=== PATIENT | male | born 1960 | race Caucasian/White ===

== ENCOUNTER → 2023-02-20 | Outpatient (CLI) | payer MEDICAID, SELFPAY ==
--- NOTE | 2023-02-20 07:50 | CT_ITS ---
CT RIGHT LOWER EXTREMITY WITH 3-D IMAGING PROCEDURE: CT RIGHT KNEE WITHOUT CONTRAST REASON FOR EXAM: Male, 62 years old. Preoperative planning for the MakoPlasty Robotic knee surgery. Knee pain. TECHNIQUE: Transaxial CT of the hip, knee and ankle were obtained. Coronal and sagittal reconstruction images of the knee were provided. Individualized dose optimization techniques were used for this CT. RADIATION DOSAGE (If Supplied By Facility): CTDIvol = ( 18.84 ) mGy, DLP = ( 1293.34 ) mGycm COMPARISON: None. FINDINGS: Standard protocol for the preoperative planning for the MakoPlasty robotic knee surgery was performed. There is mild osteoarthrosis of the hip and knee. CT/Extremity Lower without Contra IMPRESSION: Preoperative MakoPlasty Robotic knee surgical CT evaluation with findings as described above. Electronically Signed: Ray Carver, at 12:39 EDT ,
== END | disposition home or self-care (01) ==
PROVIDERS: Referring Provider Specialist; Visit Provider Specialist
DX: M21.061 Valgus deformity, not elsewhere classified, right knee (principal)
CPT/HCPCS: 73700

== ENCOUNTER 2023-03-08 07:01 | Observation (INO) | payer MEDICAID, SELFPAY ==
--- NOTE | 2023-02-20 12:05 | HP.PCM_ITS ---
History and Physical History and Physical? Patient Name: Alexander Alexander : 1960 From:? AJ CORONA PA-C? DATE OF SURGERY:? 03/08/2023 SCHEDULED PROCEDURE:? Right total knee arthroplasty HISTORY OF PRESENT ILLNESS: Preoperative history and physical exam was performed on February 20, 2023.? This is a 62-year-old male who is been having ongoing pain for over 8 years.? He has noticed progression of the pain over the past several months.? His pain can reach his high as an 8/10 with activities.? Recent pain as being constant, aching, sharp, stabbing, sore.? Pain is increased with going up and down stairs, driving, sitting and walking.? He feels unsafe with walking and doing all activities.? He has fallen and tripped/stumbled due to the pain.? He has difficulty with activities of daily living including bathing/showering, getting dressed, housework, shopping, leisure activities such as golf and writing motorcycle.? Patient denies past history of surgery on his right knee.? He has attempted rest, ice, heat, elevation with no relief.? Patient has tried compression brace without relief.? He uses an occasional cane.? Patient has tried previous corticosteroid injection and gel injection with no relief.? He has tried oral medications including ibuprofen without relief.? After failing conservative measures and discussing all treatment options was Dr. Abdulaziz Sweet, the patient does wish to proceed with a right total knee arthroplasty.? Patient has been doing aquatic therapy and has maintained weight loss through diet.? We are obtaining surgical clearance from the primary care provider Dr. Ольга Roa.? Patient does report having lab work and EKG with her primary care physician.? Patient denies past history of DVT or pulmonary embolism.? Denies any recent chest pain, shortness of breath, fevers chills or recent infections. REVIEW OF SYSTEMS: Review Of Systems: Constitutional: Denies change in appetite, fever and weight change. Cardiovasular: Denies chest pain, heart murmur and irregular heartbeat. Respiratory: Denies cough, pneumonia, shortness of breath, tuberculosis and wheezing. Gastrointestinal: Denies constipation, diarrhea, heartburn, nausea, rectal itching, bloody stools and vomiting. Genitourinary: Denies incontinence. Musculoskeletal: Reports gait disturbance, leg swelling, pain and trouble walking, but denies weakness. Skin: Reports tattoo, but denies Raynaud's and history of shingles. Neurological: Denies ambulatory dysfunction, dizziness, numbness/tingling and tremor. Psychiatric: Denies anxiety, insomnia and stress. Hematologic/Lymphatic: Denies anemia, bleeding/bruising tendency and past transfusion. Reviewed, no changes. PAST MEDICAL HISTORY: Advance Care Plan: No Advance Directives Effective Date: 02/21/2022 Past Medical History: Medical Problems: Diabetes, High Blood Pressure, Hypercholesterolemia Covid- 19 - (09/2020) Accidents: None Surgical Hx: Rotator Cuff Repair Lt - (08/30/2012) [facility] Rotator Cuff Repair Rt - (01/16/2014) [facility] Achilles Tendon Repair - (02/22/2017) [facility] Anesthesia Complications: None Assistive Devices: Glasses, Dentures Reviewed, no changes. SOCIAL HISTORY: Social History: Marital: .Occupation: Retired.Work Status: Retired.Hand Dominance: Right- handed. Personal Habits:? Cigarette Use: Former.Smokeless Tobacco: Never Used Smokeless Tobacco.E-Cigarette Use: Never used.Alcohol: Occasionally.Drug Use: Denies Use.Enjoy Exercising: Never Exercises. Reviewed and updated. VITALS: Ht: 72.5 Wt: 353lb Wt k.121 BMI: 47.2 BP: 126/82 Pulse: 99 Resp: 20 T: 97.8 T: 36.6C Pain Level: 7 O2SatR: 97 ALLERGIES: No Known Drug Allergy? MEDICATIONS: Metformin HCL 500 mg 1 by mouth every day, Lisinopril 30 mg 1 by mouth every day, Trulicity 1.5 mg/0.5ml injects once weekly, Jardiance 25 mg take 1 tablet by mouth once daily with breakfast, Pioglitazone HCL 45 mg take 1 tablet by mouth once daily, Valsartan 320 mg 1 PO qdaily, Vitamin D3 50 mcg (1999 Ut) 1 by mouth every other day, Multi Vitamin? 1 po daily PRE-OP EXAM:? General appearance:NORMAL? ? ? Other: Eyes: Conjunctivae and lids: NORMAL? Pupils: ERR Ears, Nose, Mouth, and Throat: NORMAL? Other: Inspection of lips, teeth and gums: NORMAL? ?Other: Neck: Examination of neck: no masses noted. Respiratory: Assessment of respiratory effort: NORMAL? ?Other: ?Auscultation of lungs: clear to auscultation no wheezes, rhonchi or rales. Cardiovascular:? Auscultation of heart: regular rate and rhythm, no murmurs, gallops or rubs. PHYSICAL EXAMINATION: Patient does walk with an antalgic gait with hyperextension on the right knee.? Right knee has large effusion.? He has tenderness to palpation along the lateral joint line.? Range of motion: 2 hyperextension to flexion 100.? He has 10 valgus alignment which is partially correctable.? Sensation intact to light touch. IMAGING STUDIES: Previous x-rays of the right knee reveal valgus alignment with lateral joint space narrowing, subchondral sclerosis, osteophyte formation consistent with severe stage IV osteoarthritis with bony erosions in the lateral compartment. IMPRESSION: 1.? Severe right knee osteoarthritis with valgus alignment 2.? Hypertension 3.? Type 2 diabetes 4.? Hypercholesterolemia PLAN: Dr. Abdulaziz Sweet did discuss and review with the patient all treatment options including surgical versus nonsurgical options.? Patient does wish to proceed with the above-stated procedure.? Potential risks, benefits, and complications of the procedure were discussed in detail including but not limited to , infection, nerve and blood vessel damage, persistent pain, numbness, tingling, paresthesias, blood clot, pulmonary embolism, and requirement for possible further surgery.? The patient expressed full understanding and has no further questions for the doctor.? Patient does agree to proceed with the above-stated procedure and has signed the surgery consent form. Plan for patient for post-operative medications are the following:? I did discuss with the patient that postoperatively due to elevated BMI greater than 40.0 he will be on doxycycline for 2 weeks postoperatively. DVT Prophylaxis: Patient denies past history of DVT or pulmonary embolism.? We will proceed with aspirin 81 mg twice daily for 4 weeks postoperatively for DVT prophylaxis. This dictation was created using voice recognition software. Phonetic and/or grammatical errors may exist. ___? I have re-examined the patient.? There are no clinical changes since date of exam. ___? See progress notes for changes. ___? Dictated on admission Date: ? ? ?Time: Signature:
[2023-02-23 11:02] LABS: Magnesium 2.1 mg/dL (1.6-2.6)
[2023-03-08] VITALS (14 sets, daily range): BP systolic 97–166; BP diastolic 66–97; PULSE 93–119; RESP 18–24; TEMP 36.1–36.8; O2SAT 93–99; BMI 47.5
[2023-03-08] MEDS: Magnesium 1 GM over 15 mins IV (06:32)
[2023-03-08] MEDS: Lactated Ringers 1,000 ML 999 ML IV ×2 (06:32→11:15)
[2023-03-08] MEDS: Acetaminophen 500 MG Tablet 1000 MG PO ×3 (06:54→21:24)
[2023-03-08] MEDS: Celecoxib 200 MG Capsule 400 MG PO (06:55)
[2023-03-08] MEDS: Gabapentin 600 MG Tablet PO (06:55)
--- NOTE | 2023-03-08 06:59 | PCM.OPRPT ---
Report of Operation Date of Procedure: 03/08/23 Pre-Operative Diagnosis: Right knee primary osteoarthritis Post-Operative Diagnosis: Right knee primary osteoarthritis Surgery/Procedure Performed:: Right minimally invasive robotic total knee replacement Description of Surgical Findings:: Stable knee with good patella tracking explore osteoarthritis. Patient had valgus alignment preoperatively which was corrected to neutral intraoperatively. Based on his chronic valgus alignment we did elect to use a total stabilized polyethylene in order to help offload the medial collateral ligament. Surgeon: Abdulaziz Sweet coat baster: Jay Campos Type of Anesthesia: Spinal Anesthesiologist: Marc Bernal Special Medications: 2 g Ancef, 1 g TXA at incision, 1 g TXA closure, 10 mg Decadron, joint cocktail (5 mg Duramorph, 30 mL of 0.5% Ropivicaine, 1000 units of epinephrine, 30 mg of Toradol) Specimen's removed: Bony cuts Estimated Blood Loss (mL): 150 Fluids Replaced: 1800 Description of Procedure: Implants used: 1. [place] size 7 triathlon posterior stabilized distal femoral cemented component 2. [place] size 7 cemented universal tibial baseplate 3. Poli X3 13 mm TS polyethylene 4. [place] X3 38 mm asymmetric patella Brief history operative indications: 62-year-old M with history of right knee osteoarthritis with radiographic findings with loss of joint space, osteophyte formation and subchondral sclerosis. Failed conservative measures as mentioned in the H&P. Discussion of total knee arthroplasty as well as risk and benefits were discussed the patient including but not limited to blood loss, DVTs, PEs, neurovascular damage, general risk of anesthesia including loss of life, and stiffness or instability were discussed with patient. Patient demonstrated understanding and was able to sign informed consent. Procedure: On the date of procedure patient's right lower extremity was marked in the preoperative area. The patient was then taken back to the operating room where the patient was placed on the table in the supine position. All bony prominences were identified a well-padded. Anesthesia assumed control of the C-spine and airway and remained controlled throughout the remainder of the procedure. A tourniquet was placed on the right upper thigh and the leg was prepped in a sterile fashion. The surgeon then scrubbed at this time .Upon reentering the room right lower extremity was draped in a standard orthopedic fashion. A timeout was then called and everyone agreed upon the side, the site, the procedure to be performed, patient's identity and antibiotics given. Esmarch bandage was used to exsanguinate the extremity and the tourniquet was placed up to 250 mmHg with the knee in flexion. A midline skin incision was made and sharp dissection was taken down through skin subcutaneous tissue and fat. The standard medial parapatellar incision was made and the patella was subluxed laterally. An Appropriate deep MCL release was done and the fat pad was resected. Our attention was then directed to the patella. The patella was everted and a flat resection was made. The knee was then flexed up in 2 femoral pins were placed inside the incision and 2 tibial pins were placed outside the incision in the medial tibia bicortically. Once this was completed the 2 checkpoints in the femur and tibia were placed. Knee was then flexed up and the bony landmarks were registered. Once this was completed knee was taken through range of motion and manually stressed allowing us to a plan for an appropriate tibial cut. The robotic arm was brought into the field sterilely and checkpoint and saw were registered. Based on the patient's deformity the tibial cut was made neutral to the tibial axis. At this time the tensioner was then placed in the joint and ligament tension was checked at 90 degrees and full extension. Based on the patient's ligamentous tension appropriate adjustments were made to the operative plan and ligament releases were done. Once we were happy with our operative plan with balanced flexion and extension gaps our attention was directed to the femur. The robot was brought into the field sterilely and registered. Posterior condylar cuts, anterior chamfer cuts and anterior cuts were appropriately made for a size 7 femur. When these were completed the saws were switched out in the distal femoral and posterior chamfer cuts were made. Protecting the soft tissue throughout this time. A size 7 tibial base plate was selected. the knee was flexed to 90 degrees and the soft tissues and posterior osteophytes were removed from the joint. 40 cc of the periarticular injection was injected into the posterior medial corner of the joint. The appropriate trials were then placed on the femur and tibia. A trial polyethylene was trialed to ensure proper balancing and stability of the knee. The appropriate tibial internal rotation was then marked with a bovie. Our attention was then directed to the patella. The lug holes were drilled and the patella trial was placed. Patellar tracking was checked and deemed appropriate. Once we were happy lug holes were drilled for the femur and trial components were removed. the tibia was subluxed and pinned into place and the keel was punched and drilled appropriately. Femoral notch cut was made. Final components were verified and opened, and cement was mixed in a vacuum. The Local Simplex cement was used. The wound was copiously irrigated with normal saline. When the cement was ready the components were cemented into place starting with the tibia, femur and finally cementing the patella. The trial poly component was placed and the knee was placed in full extension. All excess cement was removed in the process. Once the cement had cured the tracking, alignment and balance were verified and a size 13 mm TS polyethylene component was placed. Once the final components were placed a 3-minute dilute Betadine lavage was performed followed by an Irrisept lavage was performed and the wound was copiously irrigated with normal saline solution and the periarticular injection was given. The wound was closed in a layer woodson fashion using #1 vicryl interrupted sutures for the arthrotomy, 2-0 interrupted Vicryl suture for the subcuticular layer and juan for final skin closure. A sterile compressive dressing was then placed. The patient was then awakened from anesthesia, transferred to the [facility] and transferred to the PACU for recovery. Post op plan DVT ppx: ASA 81mg BID, thigh high compression stockings Follow up: in office in 2 weeks for wound check PT: to start POD #0 at hospital, outpatient PT should be arranged. Patient will be placed on doxycycline 100 mg p.o. twice daily postoperatively for elevated risk due to increased BMI. My physician melter assistant was a vital part of this case. He was important in appropriate retraction during the case, and protection of soft tissues during bony cuts. His intimate knowledge of the case and my steps aided in safe and expedient completion of the procedure as well as appropriate position of the leg during the case. He was also vital in assisting with closure under my direct supervision. Due to the complexity of this case robotic arm was used to assist in the surgery to improve accuracy and clinical outcomes. Complications No intraoperative complications Admit VTE Documentation VTE Present on Admission: No VTE Mechan Device Prophylaxis: SCD's and Thigh High DILEEP Hose VTE Pharm Prophylaxis ordered?: Yes
[2023-03-08 07:00] LABS: Bedside Glucose 147 mg/dL (74-106)
--- NOTE | 2023-03-08 08:30 | KNEE_PTH ---
PATIENT: KATHIE HAWLEY LOC: [facility]3 U#:[id number] AGE/SX: 62/M ROOM: IL311 RE03/08/[address]: Dr. Abdulaziz Sweet MD : 1960 BED: 1 DIS: 03/09/2023 SPEC #: [id number] RECD: 03/08/23 11:19 STATUS: RENETTA ROCHA #: [id number] KURTIS: 03/08/23 08:[address]: Abdulaziz Sweet DEPT: SURGICAL PATHOLOGY RECD BY: Kenia Rubi Tissues: Knee, NOS Procedures: Decalcification bone/plaque Surgery Specimen Level IV HEADER OPERATION: ERAS, total knee replacement robotic arm assist PRE-OP DIAGNOSIS: Severe right knee osteoarthritis with valgus alignment TISSUE SUBMITTED: A ? Bone and soft tissue of right knee, B ? Synovium of right knee MICROSCOPIC DIAGNOSIS A. Bone and tissue of right knee, total knee resection: Severe degenerative joint disease. Polarizable crystals consistent with pseudogout. B. Synovium of right knee, excision: Benign synovial hyperplasia. AM:krysten 03/13/2023 MICROSCOPIC DESCRIPTION Slides are reviewed. GROSS DESCRIPTION A - Received is one container designated bone and soft tissue right knee. The specimen consists of multiple fragments of early-yellow bone measuring in aggregate 17.0 x 15.0 x 2.5 cm. Also in the specimen container are multiple fragments of yellow-white soft tissue measuring in aggregate 2.0 x 1.0 x 0.5 cm. A number of bony fragments contain articular surfaces consistent with tibial plateau and femoral condyle and displaying prominent osteophyte formation, eburnation and bone erosion. Public Health Aides Teacher sections are submitted in two cassettes as follows: 1 - soft tissue, 2 - bone after decalcification. B - Received in fixative is one container labeled with the patient's name and designated synovium of right knee. The specimen consists of multiple irregular fragments of pink-yellow soft tissue that in aggregate measure 13.0 x 11.0 x 2.5 cm. The specimen is totally submitted in one cassette. / AM:krysten 03/08/2023 TC:5 CPT: 06577 x2, 04967
[2023-03-08] MEDS: TXA 1000mg in NS100 100ml (IVPB at Incision) 660 MG IV (08:38)
[2023-03-08] MEDS: TXA 1000mg in NS100 100ml (IVPB at Closure) 660 MG IV (10:07)
[2023-03-08] MEDS: JPS (Morphine 10mg/ml) OPERA.SITE (10:17)
--- NOTE | 2023-03-08 11:05 | RAD_ITS ---
STUDY: X-RAY - RIGHT KNEE REASON FOR EXAM: Male, 62 years old. Post op -- AP and Lateral xray of operative knee in PACU TECHNIQUE: 2 view(s) of the knee. COMPARISON: None. FINDINGS: Normal visualized distal femur. Normal visualized proximal tibia and fibula. Normal proximal tibiofibular articulation. The patient is status post total knee replacement of the restraining type. There is good alignment. Postoperative soft tissue changes. RAD/Knee 1 or 2 Views IMPRESSION: Status post total knee replacement of the restraint type. There is good alignment. Postoperative soft tissue changes. Electronically Signed: Flo Fernandez MD at 12:27 EDT ,
[2023-03-08 11:25] LABS: Bedside Glucose 146 mg/dL (74-106)
[2023-03-08] MEDS: Ketorolac 15 MG/ML Vial IV (12:37)
[2023-03-08] MEDS: 0.9% Saline Lock 10 ML Syringe IV (12:37)
--- NOTE | 2023-03-08 14:16 | PCM.CONS.GEN ---
Assessment & Plan Assessment/Plan (1) Osteoarthritis of right knee: PLAN: Plan Right knee osteoarthritis -Postop day 0 minimally invasive right total knee arthroplasty -PT/OT consultation pending -There is note that he had extremely thick synovitis that was sent for pathology for further evaluation of potential for inflammatory arthropathies -Thigh-high compression stockings -Pain management per primary physician -Doxycycline 100 mg p.o. twice daily postoperatively for increased infectious risk due to BMI -Anticipate discharge home in the next 24 hours as long as patient continues to do well DM-2 -His home oral medications have been reinitiated by orthopedic surgery -Continue Jardiance/metformin/Actos -Restart Trulicity at discharge--> he takes this every Monday -Monitor blood sugars -Cardiac diet -Patient did get dexamethasone postoperatively so I do expect his postoperative sugars to be somewhat elevated Hypertension -Patient is on valsartan however this is nonformulary here -Continue losartan 100 mg daily Vitamin D deficiency -Continue vitamin D supplementation GISELL -Patient admitted he has sleep apnea however does not tolerate any intervention -Monitor for nocturnal hypoxia and placed on oxygen if needed Morbid obesity -BMI 47.5 -Recommend weight loss -Complicates treatment, prognosis, outcomes DVT prophylaxis -Per primary service with 81 mg twice daily of aspirin HPI Consult Data Date of Consult: 03/08/23 HPI Narrative Reason for Consultation: Postop right total knee for medical management HPI Narrative: KATHIE HAWLEY, is a 62 M who presented to [facility] for an elective right total knee minimally invasive arthroplasty. Patient had evidently been having ongoing pain for 8 years and had had progression of pain over the last several months prior to his surgery. Described the pain as being constant and aching in nature with intermittent sharpness and stabbing depending on activity and constant soreness. He had increased pain with ADLs and IADLs and he felt unsafe walking and has fallen, tripped and stumbled due to pain periodically. He is attempted multiple types of conservative management and has been using a cane with ambulation. He did have a cortical steroid injection and a hyaluronic acid injection with no relief. Surgical clearance was provided preoperatively by his primary care provider and he was taken to the OR today for surgery. We have been consulted for postoperative management of his chronic medical issues. His past medical history includes diabetes, hypertension, and hyperlipidemia how is not medicated for his cholesterol elevation. I have evaluated him postoperatively on the medical floor. [facility], [facility] Medical History Alcohol use Back pain Diabetes Dietary restriction Former smoker History of echocardiogram History of edema History of pain when walking Hypertension Wears dentures Wears glasses Home Medications cholecalciferol (vitamin D3) 50 mcg (2,000 unit) capsule (Vitamin D3) 50 mcg PO QODAY 02/22/23 [History Last Taken 03/08/23] dulaglutide 1.5 mg/0.5 mL subcutaneous pen injector (Trulicity) 1.5 mg subcut MO 02/22/23 [History Last Taken 03/07/23] empagliflozin 25 mg tablet (Jardiance) 25 mg PO DAILY 02/22/23 [History Last Taken 03/07/23] metformin 1,000 mg tablet 1,000 mg PO BID 02/22/23 [History Last Taken 03/07/23] multivitamin 1 tab PO DAILY 02/22/23 [History Last Taken 03/07/23] pioglitazone 45 mg tablet 45 mg PO DAILY 02/22/23 [History Last Taken 03/07/23] valsartan 320 mg tablet 320 mg PO DAILY 02/22/23 [History Last Taken 03/08/23] Allergy/AdvReac Type Severity Reaction Status Date / Time No Known Allergies Allergy Verified 03/08/23 06:42 Surgical History Hx of Achilles tendon repair Hx of rotator cuff surgery Social History Smoking Status: Former smoker Physical Exam Const alert, oriented x3, no apparent distress and well nourished Constitutional Narrative: Morbidly obese, upper middle-aged, white male sitting up in a chair at the bedside, watching television, appears comfortable nontoxic General Appearance: cooperative HEENT normocephalic, head/scalp atraumatic, hearing grossly normal bilaterally and moist oral mucous membranes HEENT Narrative: Mallampati is 3-4 Resp normal respiratory effort, no retractions, no use of accessory muscles and clear to auscultation bilaterally Auscultation: Negative for rales, rhonchi or wheezes Cardio regular rate, regular rhythm, S1 normal heart sound, S2 normal heart sound, no murmurs, no rub, no gallops and no clicks GI normal to inspection, nondistended, normoactive bowel sounds, soft to palpation and non-tender Extremity Extremity Narrative: Bilateral lower extremity DILEEP hose in place, polar ice on right lower extremity, no cyanosis or clubbing, no significant edema noted at this time Neuro oriented x3, CN's II-XII intact bilaterally, moves all extremities and no focal motor deficits Speech: speech normal Psych affect normal Psych Narrative: Very pleasant and appropriately interactive Lab / Micro Data Labs: Laboratory Results - last 24 hr 03/08/23 06:39: POC Glucose 147 H 03/08/23 11:03: POC Glucose 146 H Radiology Impression Knee X-Ray 03/08/23 11:05 IMPRESSION: Status post total knee replacement of the restraint type. There is good alignment. Postoperative soft tissue changes. Electronically Signed: Flo Fernandez MD at 12:27 EDT , Charges/Coding Visit Charges Inpatient E&M: 29928 Subs Hosp L2
[2023-03-08] MEDS: oxyCODONE 5 MG Tablet PO (14:22)
[2023-03-08] MEDS: Cefazolin 1 GM/50 ML BAG IV ×2 (15:34→23:40)
[2023-03-08] MEDS: Aspirin 81 MG TAB.CHEW PO (17:29)
[2023-03-08] MEDS: metFORMIN HCl 1,000 MG Tablet 1000 MG PO (17:29)
[2023-03-08] MEDS: Ensure Surgery 237 ML LIQUID PO (17:30)
[2023-03-08] MEDS: Senna/Docusate Sodium 1 Tablet 2 TABLET PO (21:25)
[2023-03-09] MEDS: MELATONIN 3 MG TABLET PO (00:31)
[2023-03-09 04:12] VITALS: BP 131/85; PULSE 101; RESP 18; TEMP 36.8; O2SAT 98
[2023-03-09 05:47] LABS: Hematocrit 38.1 % (40-54); Hemoglobin 12.3 g/dL (13.0-16.5); Mean Corp Hgb Conc 32.3 g/dL (32-36); Mean Corpuscular Hgb 29.2 pg (27.0-32.0); Mean Corpuscular Volume 90.5 fL (80-94); Mean Platelet Vol. 9.7 fl (6.2-12.0); Platelet Count 236 K/mm3 (150-450); RBC Distribution Width CV 13.9 % (11.6-14.6); RBC Distribution Width SD 46.2 fl (35.1-43.9); Red Blood Count 4.21 M/mm3 (4.6-6.2); White Blood Count 10.5 K/mm3 (4.4-11.0)
[2023-03-09] MEDS: Acetaminophen 500 MG Tablet 1000 MG PO ×2 (05:54→13:28)
[2023-03-09 06:13] LABS: Anion Gap 3 (5-15); BUN 19 mg/dL (7-18); BUN/Creat Ratio 20.4 RATIO (10-20); Calcium,Total 8.4 mg/dL (8.5-10.1); Chloride 104 mmol/L (98-107); Creatinine, Serum 0.93 mg/dL (0.70-1.30); EST Glomerular Filtration Rate 87 mL/min (>60); Est Glom Filt Rate - Afr Amer 105 mL/min (>60); Estimated Creatinine Clearance 90.39 ml/min; Glucose 171 mg/dL (74-106); Potassium 4.2 mmol/L (3.5-5.1); Sodium Level 134 mmol/L (136-145)
[2023-03-09] MEDS: Ensure Surgery 237 ML LIQUID PO (09:13)
[2023-03-09] MEDS: Aspirin 81 MG TAB.CHEW PO (09:14)
[2023-03-09] MEDS: Senna/Docusate Sodium 1 Tablet 2 TABLET PO (09:14)
[2023-03-09] MEDS: Losartan Potassium 100 MG Tablet PO (09:14)
[2023-03-09] MEDS: metFORMIN HCl 1,000 MG Tablet 1000 MG PO (09:14)
[2023-03-09] MEDS: Empagliflozin 25 MG Tablet PO (09:14)
[2023-03-09] MEDS: Famotidine 20 MG Tablet PO (09:14)
[2023-03-09] MEDS: Multivitamins,Therapeutic Tablet 1 TABLET PO (09:14)
[2023-03-09] MEDS: Pioglitazone Hydrochloride 45 MG Tablet PO (09:16)
[2023-03-09 09:27] VITALS: BP 136/88; PULSE 88; RESP 20; TEMP 36.8; O2SAT 93
[2023-03-09] MEDS: oxyCODONE 5 MG Tablet PO (09:38)
--- NOTE | 2023-03-09 10:23 | PCM.PN.ORT ---
Subjective Subjective The patient was sitting in bedside chair upon examination. Patient denies any chest pain, shortness of breath, dizziness, lightheadedness, nausea or vomiting, or calf pain. Pain is controlled on medications. No adverse overnight events. Patient states at rest his pain is much better and most of his pain is associated with ambulating. He has been through therapy and did well today. He wishes to try to go home today. Patient denies any chest pain, shortness of breath or palpitations. He did have some slightly elevated heart rate with low-grade tachycardia. However on his preoperative history and physical exam in our office patient was resting at 99 bpm. He also reports that he has been told that he has increased heart rate by his primary care physician. Objective Data Objective Data Vital signs stable and afebrile. SCDs and DILEEP hose are in place bilaterally Patient is able to plantarflex and dorsiflex actively. Sensation is intact to light touch to saphenous, sural, superficial and deep peroneal, and tibial distribution. Proximal and distal pin site dressings clean dry and intact. Mepilex dressing has quarter size drainage over the middle one third with remaining dressing clean dry and intact. Negative Homans bilaterally, negative signs and symptoms of DVT. Vital Signs: Vital Signs Temp Pulse Resp BP Pulse Ox O2 Del Method O2 Flow Rate 98.3 F 88 20 H 136/88 H 93 Room Air 2 03/09/23 09:27 03/09/23 09:27 03/09/23 09:27 03/09/23 09:27 03/09/23 09:27 03/09/23 09:27 03/08/23 12:20 Oxygen Flow Rate (L/min) 2 Oxygen Delivery Method Room Air Weight: 161 kg Body Mass Index (BMI) 47.5 Intake & Output: Intake and Output for Last 24 Hours 03/07/23 03/08/23 03/09/23 23:59 23:59 23:59 Intake Total 4187 / 4187 368.25 / 368.25 Output Total 300 / 300 Balance 3887 / 3887 368.25 / 368.25 Lab / Micro Data Result Diagrams: 03/09/23 05:30 03/09/23 05:30 Labs: Laboratory Results - last 24 hr 03/08/23 11:03: POC Glucose 146 H 03/09/23 05:30: WBC 10.5, RBC 4.21 L, Hgb 12.3 L, Hct 38.1 L, MCV 90.5, MCH 29.2, MCHC 32.3, RDW Std Deviation 46.2 H, RDW Coeff of [place] 13.9, Plt Count 236, MPV 9.7 03/09/23 05:30: Sodium 134 L, Potassium 4.2, Chloride 104, Carbon Dioxide 27.0, Anion Gap 3 L, BUN 19 H, Creatinine 0.93, Estim Creat Clear Calc 90.39, Est GFR (MDRD) Af Amer 105, Est GFR (MDRD) Non-Af 87, BUN/Creatinine Ratio 20.4 H, Glucose 171 H, Calcium 8.4 L Micro: Microbiology 02/23/23 09:40 Swab (Method) Nasal Screen MRSA/MSSA - Final Radiography Diagnostic Testing: Radiology Impression Knee X-Ray 03/08/23 11:05 IMPRESSION: Status post total knee replacement of the restraint type. There is good alignment. Postoperative soft tissue changes. Electronically Signed: Flo Fernandez MD at 12:27 EDT , Assessment & Plan Assessment/Plan (1) Status post total right knee replacement: PLAN: 1. S/P right total knee arthroplasty POD #1 2. Continue Pain Medications: Tylenol, meloxicam, and oxycodone as needed. Do not take any other nonsteroidal anti-inflammatories while using meloxicam/Mobic. 3. DVT Prophylaxis: Take 81 mg aspirin twice daily for 4 weeks postoperatively for DVT prophylaxis. Patient denies past history of DVT or pulmonary embolism 4. PT/OT: Weightbearing as tolerated with walker 5. H & H: 12.3/38.1, asymptomatic. Postoperative anemia secondary to acute blood loss from surgery without any intra operative complications. 6. Currently on doxycycline for 2 weeks postoperatively due to elevated BMI greater than 40.0 and elevated A1c with underlying type 2 diabetes mellitus. I discussed with the patient potential side effects of doxycycline including sensitivity to the sunlight and increased risk of skin burn. Recommend patient take appropriate precautions. Also recommend patient to take probiotic while on the antibiotic. Patient voiced understanding agreement. 7. Encouraged Incentive Spirometry 8. Continue postoperative medical management per medicine: Discussed case with medicine 9. Disposition: Plan will be for probable discharge home this afternoon as long as patient is medically stable, tolerates therapy, and pain is well controlled. Patient would like his prescriptions E scribed to [facility] [place]. Patient will follow-up per postop instructions. Patient does have outpatient physical therapy established. Upon discharge she will contact her office with any concerns or questions. I have reviewed the [place] Automated Rx Reporting System (OARRS) report for this patient for refill pattern and other prescriber involvement as part of the appropriate surveillance for the provision of acute and chronic controlled medications. The report was requested and reviewed on the date of this entry and was considered in the prescribing process. This dictation was created using voice recognition software. Phonetic and/or grammatical errors may exist.
--- NOTE | 2023-03-09 10:28 | PCM.DC ---
Discharge Instructions Diet Discharge Diet: No restrictions Activity Discharge Activity: May Not Drive (No driving for 6 weeks postoperatively. Must also be off all narcotics and able to walk 100 feet without the use of cane or walker.) May shower in (days): 1 (Please turn dressing away from water. Okay to get wet as long as dressing is intact to skin.) Ice area for (Minutes): 20 (Every 1-2 hours while awake. Please place barrier between the skin and ice pack.) Weight Bearing Status: Weight bearing as tolerated Keep extremity elevated above heart level: Operative Extremity Dressing / Incision Call your doctor if your incision/area has: Continuous Slow Oozing, Sudden Increased Bleeding, Increased Pain/ Swelling, Increased Redness and Foul Smelling Discharge Call your doctor if you observe: Fever of 101 or Higher, Coldness, Increased Pain, Numbness or Tingling, Change in Color, Shortness of breath, Chest pain, Calf discomfort and Uncontrolled pain Remove Dressing in: 4 days (Okay to remove dressing on March 13, 2023) Additional Dressing/Incision Instructions:: Follow [facility] Post-op Instructions. Once postoperative dressing has been removed only use gentle soap and water over the incision. Do not use any ointments, Neosporin, salves, alcohol pads over the incision for 6 weeks postoperatively. Do not submerge underwater for 6 weeks postoperatively. Continue with DILEEP hose/elastic stockings for 2 weeks postoperatively. May remove at nighttime but needs to be placed back on the leg during the day. Do NOT use alcohol with narcotic pain medication. Do NOT make important decisions while taking narcotic medication. If you have problems with taking your medication (rash, itching, nausea, etc.) call the office at once. Follow Up Care Test Results: Test results from this visit will be discussed in further detail at your follow-up appointment, if applicable. Discharge Plan Admission Admit Date/Time: 03/08/23 07:01 Attending Provider: Abdulaziz Sweet Primary Care Provider: JUAN SYED Consulting Providers: Janet Mccarthy Discharge Orders/Prescriptions Prescriptions: New acetaminophen 500 mg Tablet 1,000 mg PO Q8 14 Days Qty: 100 0RF Rx Instructions: Do not take more than 3000 mg Tylenol in a 24-hour period. aspirin 81 mg tablet,delayed release (DR/EC) 81 mg PO BIDCM 30 Days Qty: 60 0RF Rx Instructions: Take 81 mg aspirin twice daily for 4 weeks postoperatively for DVT prophylaxis. meloxicam 7.5 mg Tablet 7.5 mg PO BID 30 Days Qty: 60 0RF Rx Instructions: Do not take any other nonsteroidal anti-inflammatories while using meloxicam/Mobic. famotidine 20 mg Tablet 20 mg PO DAILY Qty: 30 0RF doxycycline monohydrate 100 mg Capsule 100 mg PO BID 14 Days Qty: 28 0RF oxycodone 5 mg Tablet 5 - 10 mg PO Q4H PRN PRN (Reason: Pain Score 4-10) 7 Days Qty: 60 0RF sennosides-docusate sodium [Stool Softener-Stimulant Laxat] 8.6-50 mg Tablet 2 tab PO BID 2 Days Qty: 8 0RF Rx Instructions: Take until first bowel movement, then as needed Continued multivitamin Tablet 1 tab PO DAILY pioglitazone 45 mg Tablet 45 mg PO DAILY metformin 1,000 mg Tablet 1,000 mg PO BID valsartan 320 mg Tablet 320 mg PO DAILY cholecalciferol (vitamin D3) [Vitamin D3] 50 mcg (2,000 unit) Capsule 50 mcg PO QODAY Jardiance 25 mg Tablet 25 mg PO DAILY Trulicity 1.5 mg/0.5 mL Pen Injector 1.5 mg SUBCUT MO Referrals / Follow Up: JUAN SYED [Other] Jay Campos PA-C [Med Staff - [facility]] - 03/23/23 2:15 pm Disposition Disposition (needs filled in before D/C Order can be placed): Home, Self Care
--- NOTE | 2023-03-09 11:15 | CASEMGMT ---
Addendum entered by Kashmir Camara 03/09/23 12:04: Call to [facility] Retail pharmacy. Cost of all 7 meds that have been e-scribed to them is $24.97. Pt made aware and states this is affordable. Original Note: RN?CM?HOSE STRIPPER?CM?to room to meet with patient for initial transition planning/care coordination?assessment.?RN?CM?introduced self and role at [facility].? Pt voices understanding and consents to?assessment?at this time.? Pt sitting up in chair in no distress at this time.? Pt is A/O at this time and answers all questions appropriately.?? Care providers, pharmacy, and demographics verified/updated at this time. PCP: Dr Ольга Roa Specialists: Dr Sweet-jeanne Preferred Pharmacy: [facility] Retail Insurance: [employer] Prescription Benefit:?Yes Living Will/HPOA:? Pt does not currently have LW/HCPOA and declines info at this time.? Pt made aware that he can contact as an out-pt and make appt in the future if he decides he would like to talk with someone about this or would like to utilize [facility] social work for advanced directive completion.?Pt states his friend is a retired torch operator and plans to have him assist him. LNOK: daughter, Victorina. Sister, Noemí Living Arrangements: Lives alone in one-story home w/basement w/2 steps to enter home. Indep w/ADL's and IADL's prior to surgery. Pt's sister is coming to stay w/him 24/7 as long as needed. Pt states he has a brother and another sister that are also available, if needed. Transportation:?Pt states drives self and states no transportation concerns at this time.?Sister will take him home @ d/c. DME: States has the following DME: shower chair, RTS, cane, walker, functioning glucometer w/supplies, and [employer] machine. ?Pt states no need for further DME at this time.? HHC/SNF: No hx of either. Pt states will be going to [facility] for OP therapy and states he has an appt scheduled for tomorrow @ 8:45 AM. His sister will take him to the appts. Pt wishes to return home and states has no concerns with going home at time of discharge.? CM?to follow for any discharge planning/needs.? Pt voices no further concerns/needs at this time.? Advised pt to ask for?CM?if any further questions/concerns/needs arise.? Voices understanding. PLAN:??Home w/OP therapy. Rickie BSN?RN?CM
--- NOTE | 2023-03-09 12:25 | PCM.PN.HOSP ---
Reason for Visit Reason for Visit: Diagnoses Unilateral primary osteoarthritis, right knee (03/08/23) Encounter for other preprocedural examination (03/08/23) Presence of right artificial knee joint (03/08/23) Subjective Subjective Evaluated this a.m., doing well, had small bowel movement. No complaints Objective Data Objective Data Vital Signs: Vital Signs Temp Pulse Resp BP Pulse Ox O2 Del Method O2 Flow Rate 98.3 F 88 20 H 136/88 H 93 Room Air 2 03/09/23 09:27 03/09/23 09:27 03/09/23 09:27 03/09/23 09:27 03/09/23 09:27 03/09/23 09:27 03/08/23 12:20 Oxygen Flow Rate (L/min) 2 Oxygen Delivery Method Room Air Weight: 161 kg Body Mass Index (BMI) 47.5 Intake & Output: Intake and Output for Last 24 Hours 03/07/23 03/08/23 03/09/23 23:59 23:59 23:59 Intake Total 4187 / 4187 368.25 / 368.25 Output Total 300 / 300 Balance 3887 / 3887 368.25 / 368.25 Lab / Micro Data Result Diagrams: 03/09/23 05:30 03/09/23 05:30 Labs: Laboratory Results - last 24 hr 03/09/23 05:30: WBC 10.5, RBC 4.21 L, Hgb 12.3 L, Hct 38.1 L, MCV 90.5, MCH 29.2, MCHC 32.3, RDW Std Deviation 46.2 H, RDW Coeff of [place] 13.9, Plt Count 236, MPV 9.7 03/09/23 05:30: Sodium 134 L, Potassium 4.2, Chloride 104, Carbon Dioxide 27.0, Anion Gap 3 L, BUN 19 H, Creatinine 0.93, Estim Creat Clear Calc 90.39, Est GFR (MDRD) Af Amer 105, Est GFR (MDRD) Non-Af 87, BUN/Creatinine Ratio 20.4 H, Glucose 171 H, Calcium 8.4 L Micro: Microbiology 02/23/23 09:40 Swab (Method) Nasal Screen MRSA/MSSA - Final Radiography Diagnostic Testing: Radiology Impression Knee X-Ray 03/08/23 11:05 IMPRESSION: Status post total knee replacement of the restraint type. There is good alignment. Postoperative soft tissue changes. Electronically Signed: Flo Fernandez MD at 12:27 EDT , Physical Exam Narrative General: Alert, oriented, no apparent distress HEENT: Atraumatic, normocephalic Eyes: Anicteric, normal conjunctiva, extraocular movements grossly intact Neck: Supple Respiratory: Clear to auscultation bilaterally, normal respiratory effort Cardiovascular: Regular rate and rhythm GI: Soft, nontender, nondistended Extremities: No edema Musculoskeletal: Moving all extremities Neuro: No overt focal neurological deficits Skin: No rashes appreciated Psych: Cooperative Assessment & Plan Assessment/Plan (1) Osteoarthritis of right knee: PLAN: Plan Right knee osteoarthritis -Postop day 0 minimally invasive right total knee arthroplasty -PT/OT consultation pending -There is note that he had extremely thick synovitis that was sent for pathology for further evaluation of potential for inflammatory arthropathies -Thigh-high compression stockings -Pain management per primary physician -Doxycycline 100 mg p.o. twice daily postoperatively for increased infectious risk due to BMI -Anticipate discharge home in the next 24 hours as long as patient continues to do well -03/09: DC to home today per Ortho DM-2 -His home oral medications have been reinitiated by orthopedic surgery -Continue Jardiance/metformin/Actos -Restart Trulicity at discharge--> he takes this every Monday -Monitor blood sugars -Cardiac diet -Patient did get dexamethasone postoperatively so I do expect his postoperative sugars to be somewhat elevated Hypertension -Patient is on valsartan however this is nonformulary here -Continue losartan 100 mg daily Vitamin D deficiency -Continue vitamin D supplementation GISELL -Patient admitted he has sleep apnea however does not tolerate any intervention -Monitor for nocturnal hypoxia and placed on oxygen if needed Morbid obesity -BMI 47.5 -Recommend weight loss -Complicates treatment, prognosis, outcomes DVT prophylaxis -Per primary service with 81 mg twice daily of aspirin Charges/Coding Visit Charges Inpatient E&M: 56903 [facility] [[email or web address]] Hosp L1
[2023-03-09] MEDS: Doxycycline 100 MG CAPSULE PO (13:28)
== END 2023-03-09 13:49 | disposition home or self-care (01) ==
LOC: SDC 10:41 → MS3 10:41
PROVIDERS: Anesthesiology; Admitting Provider Specialist; Referring Provider Specialist; Visit Provider Specialist
PROC: 0SRC0JZ Replacement of Right Knee Joint with Synthetic Substitute, Open Approach (ICD-10-PCS; CPT 27447; principal; 2023-03-08 08:00)
DX: M17.11 Unilateral primary osteoarthritis, right knee (principal); E66.01 Morbid (severe) obesity due to excess calories; Z68.42 Body mass index [BMI] 45.0-49.9, adult; E11.9 Type 2 diabetes mellitus without complications; R00.0 Tachycardia, unspecified; Z79.84 Long term (current) use of oral hypoglycemic drugs; Z87.891 Personal history of nicotine dependence; E78.00 Pure hypercholesterolemia, unspecified; I10 Essential (primary) hypertension; Z79.899 Other long term (current) drug therapy; E55.9 Vitamin D deficiency, unspecified; G47.33 Obstructive sleep apnea (adult) (pediatric)
CPT/HCPCS: 27447; S2900; 01402; 64445; 36415; 73560; 80048; 82962; 83735; 85027; 87081; 88305; 88311; 94668; 96365; 96366; 96375; 97110; 97116; 97162; 97166; 97530; 97535; 99221; C1776; J7050; J7120; A4216; G0378; J2405; J3475

== ENCOUNTER → 2023-03-23 | Outpatient (CLI) | payer MEDICAID, SELFPAY ==
--- NOTE | 2023-03-23 16:00 | VDLE_ITS ---
Reason For Study: Right leg swelling RIGHT GSV is normal. CFV is compressible, spontaneous, phasic, competent and demonstrates normal augmentation. FV is compressible, spontaneous, phasic, competent and demonstrates normal augmentation. POP V is compressible, spontaneous, phasic, competent and demonstrates normal augmentation. T/P Trunk is compressible. PTV is compressible. RT PerV is compressible. Procedure This is a venous duplex using B-mode, color flow and spectral Doppler. Exam performed in department. A preliminary report was called and/or faxed to [facility]. VL/Venous Duplex US, Unilateral Interpretation Summary There is no evidence of right lower extremity deep vein thrombosis. Right great saphenous vein appears patent and compressible segmentally. Ordering Physician: Jay Campos Performed By: Tiesha Carey RVT
== END | disposition home or self-care (01) ==
LOC: CVS 15:59
PROVIDERS: Referring Provider Physician Assistant Surgical; Visit Provider Physician Assistant Surgical
DX: R22.41 Localized swelling, mass and lump, right lower limb (principal)
CPT/HCPCS: 93971

== ENCOUNTER 2025-01-05 10:25 | Emergency (ER) | payer MEDICAID, SELFPAY ==
[2025-01-05 10:26] VITALS: BP 142/100; PULSE 107; RESP 20; TEMP 36.2; O2SAT 93
--- NOTE | 2025-01-05 10:38 | ED.VIS.LOWEX ---
HPI History of Present Illness HPI Narrative: Patient presents with left hip pain that has been getting worse over the past 4 months. Patient states he fell 4 months ago and has been having progressive pain in his hip. Patient states she has had x-rays done which were negative. Patient states he had a venous Doppler of his left lower extremity done which was negative. Patient states he has been going through physical therapy. Patient states that whenever he walks he feels clicking and popping in his hip. Patient describes the pain as sharp and aching. Patient states the pain is worse with walking. Patient denies any paresthesias or weakness. Patient denies any other injuries. Chief Complaint: Lower Extremity Injury Informant: patient Occured/Mechanism Mechanism/Context: Yes fall Onset/Context/Timing Onset: Month(s) (4) Context: Gradual Onset Timing: Continuous Quality of Pain: Sharp and Aching Location: Left hip Worsened by: Weightbearing and ambulation Relieved by: Nothing Associated Symptoms Associated Symptoms: Negative for Parasthesia, Weakness or Loss of Funtion [facility] Medical History Wears dentures Wears glasses Alcohol use Diabetes Back pain Dietary restriction Former smoker History of pain when walking History of edema History of echocardiogram Hypertension Home Medications ?Medication ?Instructions ?Recorded ?Last Taken ?Type dulaglutide 1.5 mg/0.5 mL 4.5 mg subcut MO 02/22/23 03/07/23 History subcutaneous pen injector (Trulicity) empagliflozin 25 mg tablet 25 mg PO DAILY 02/22/23 03/07/23 History (Jardiance) metformin 1,000 mg tablet 1,000 mg PO BID 02/22/23 03/07/23 History pioglitazone 45 mg tablet 45 mg PO DAILY 02/22/23 03/07/23 History valsartan 320 mg tablet 320 mg PO DAILY 02/22/23 03/08/23 History amlodipine 5 mg tablet 5 mg PO DAILY 01/05/25 Unknown History ezetimibe 10 mg tablet 10 mg PO DAILY 01/05/25 Unknown History insulin degludec 200 unit/mL (3 8 unit subcut QHS 01/05/25 Unknown History mL) subcutaneous pen oxycodone-acetaminophen 5 mg-325 1 tab PO Q6H PRN PRN Pain 3 days 01/05/25 Unknown Rx mg tablet #12 TABLETS Allergy/AdvReac Type Severity Reaction Status Date / Time No Known Allergies Allergy Verified 01/05/25 10:28 Surgical History Hx of Achilles tendon repair Hx of rotator cuff surgery Social History household members: none housing: house Smoking Status: Former smoker ROS ROS ED Constitutional Constitutional ED: Denies chills or fever(s) Eyes Eyes: Denies blurry vision or change in vision ENT ENT ED: Denies rhinorrhea or sore throat Cardiovascular Cardiovascular: Denies chest pain or palpitations Respiratory/Chest Respiratory/Chest: Denies cough or dyspnea Gastrointestinal Gastrointestinal: Denies nausea or vomiting Genitourinary Genitourinary ED: Denies dysuria or hematuria Musculoskeletal Musculoskeletal: Denies back pain or neck pain Integumentary Denies abscess or rash Neurologic Neurologic: Denies headache(s) or weakness Allergic/Immunologic Allergic/Immunologic ED: Denies mouth swelling or urticaria EXAM Physical Exam Const Vital Signs: 01/05/25 10:26 Temperature 97.1 F L Temperature Source Temporal Pulse Rate 107 H Respiratory Rate 20 H Blood Pressure 142/100 H Blood Pressure Mean 114 Pulse Ox 93 Oxygen Delivery Method Room Air Positive well nourished and well developed Constitutional Narrative: BMI is 49.3. General Appearance ED: well developed and NAD HEENT Reports moist mucous membranes Neck full ROM and supple GI non-tender and non-distended Palpation: soft Back/Spine Back/Spine Narrative: There is tenderness over the sacroiliac joint and sciatic notch. There is no bony crepitance or step-off noted. Extremity Extremity Narrative: There is diffuse tenderness over the left hip. There is no obvious deformity noted. Range of motion was limited in all motions of the left hip secondary to pain. Strength is 5/5 bilaterally in the lower extremities. There are no sensory deficits noted. Pedal pulses are equal bilaterally. Neuro oriented x3, CN's II-XII intact bilaterally, moves all extremities and no sensory deficits noted Sensorium / Orientation: alert Motor Exam: strength 5/5 throughout Psych mental status grossly normal MDM MDM MDM Narrative Medical decision making narrative: Differential diagnosis includes hip fracture, sciatica, strain, and internal derangement. Since the patient has already had negative hip x-rays, CT scan of the left hip will be obtained to assess for occult fracture. Radiography Diagnostic Testing: Clinical Impression(s) from Imaging Studies Lower Extremity CT 01/05/25 10:49 IMPRESSION: Severe degenerative changes in the left hip with no acute osseous abnormality. One or more dose reduction techniques were used (e.g., Automated exposure control, adjustment of the mA and/or kV according to patient size, use of iterative reconstruction technique). Reading Location: [facility] CT scan of the left hip was obtained. There are severe degenerative changes. There is no acute fracture. This was interpreted by the radiologist was also independently reviewed by myself. Treatment and Re-Evaluation Narrative: Patient was given injection of morphine. Patient had some improvement of his pain. Patient was able to ambulate with a cane here in the emergency department. Patient was instructed to use ice to the area. Patient was given a prescription for Percocet. Patient was instructed to follow-up with his primary care physician in 5 to 7 days. Patient was also instructed to follow-up with Dr. Sweet who did his right total knee replacement. Patient was instructed to return if worse in any way. Patient understood and was agreeable with the plan. All questions were answered. Discharge Plan Triage Chief Complaint: Lower Extremity Injury ED Provider: Mathew Smith Dx/Rx/DC Orders Clinical Impression: Osteoarthritis of left hip, Type 2 diabetes mellitus, Hypertension Instructions: ED Hip Strain, ED Osteoarthritis Prescriptions: New oxycodone-acetaminophen 5-325 mg tablet 1 tab PO Q6H PRN PRN (Reason: Pain) 3 Days Qty: 12 0RF No Action pioglitazone 45 mg Tablet 45 mg PO DAILY metformin 1,000 mg Tablet 1,000 mg PO BID valsartan 320 mg Tablet 320 mg PO DAILY Jardiance 25 mg Tablet 25 mg PO DAILY Trulicity 1.5 mg/0.5 mL Pen Injector 4.5 mg SUBCUT MO amlodipine 5 mg tablet 5 mg PO DAILY ezetimibe 10 mg tablet 10 mg PO DAILY insulin degludec 200 unit/mL (3 mL) insulin pen 8 unit subcut QHS Primary Care Provider: NOT,DEFINED Referrals: Abdulaziz Sweet MD [Med Staff - Active Staff] - 5-7 Days NOT,DEFINED [Primary Care Provider] - Doctor,Your [Non-Staff] - Keep Taylor appointment Print Language: Kinyarwanda Disposition Disposition: Home, Self Care
[2025-01-05 10:40] VITALS: BMI 49.3
--- NOTE | 2025-01-05 10:49 | CT_ITS ---
PROCEDURE: EXTREMITY LOWER WITHOUT CONTRA REASON FOR EXAM: Left hip pain TECHNIQUE: Left CT without intravenous contrast. COMPARISON: None. FINDINGS: Bones: No evidence of fracture. Joints: Degenerative changes are present. Flattening of the left humeral head with sclerotic and cystic changes with loss of joint space in the left hip. Soft Tissues: Unremarkable. CT/Extremity Lower without Contra IMPRESSION: Severe degenerative changes in the left hip with no acute osseous abnormality. One or more dose reduction techniques were used (e.g., Automated exposure contr ol, adjustment of the mA and/or kV according to patient size, use of iterative reconstruction technique). Reading Location: [facility]
[2025-01-05] MEDS: Morphine 4 MG/ML Syringe IM (10:56)
== END 2025-01-05 12:33 | disposition home or self-care (01) ==
PROVIDERS: Emergency Provider Emergency Medicine; Visit Provider Emergency Medicine
DX: M16.12 Unilateral primary osteoarthritis, left hip (principal); E11.9 Type 2 diabetes mellitus without complications; Z79.4 Long term (current) use of insulin; I10 Essential (primary) hypertension; Z79.84 Long term (current) use of oral hypoglycemic drugs; Z79.85 Long-term (current) use of injectable non-insulin antidiabetic drugs; Z79.899 Other long term (current) drug therapy; Z87.891 Personal history of nicotine dependence
CPT/HCPCS: 73700; 96372; 99282